=== PATIENT | female | born 2000 | race Caucasian/White ===

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

== ENCOUNTER 2020-03-12 03:05 | Emergency (ER) | payer OTHER ==
[~2020-03-12] VITALS: Ht 157.5 cm; Wt 73.0 kg
--- NOTE | 2020-03-12 03:08 | NUR ---
PT DIANNA MIXONS. TAKEN TO BED 4
[2020-03-12 03:10] VITALS: BP 122/84
--- NOTE | 2020-03-12 03:10 | NUR ---
Dr. Dela Cruz examining patient.
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
[2020-03-12] MEDS ORDERED: NACL 0.9% 1,000 ML IV SCH (03:16)
[2020-03-12] MEDS ORDERED: ONDANSETRON 4 MG/2 ML VIAL IVP ONE (03:20)
[2020-03-12] MEDS ORDERED: MORPHINE SULFATE 4 MG/ML SYR IVP ONE (03:20)
[2020-03-12 03:29] LABS: APPEARANCE,URINE CLOUDY (CLEAR); BILIRUBIN,URINE NEGATIVE (NEGATIVE); BLOOD, URINE NEGATIVE (NEGATIVE); COLOR,URINE YELLOW (YELLOW); LEUKOCYTE ESTERASE ,URINE NEGATIVE (NEGATIVE); NITRITE, URINE NEGATIVE (NEGATIVE); PH,URINE 6.5 (5.0-9.0); UGLUCOSE NEGATIVE (NEGATIVE)
[2020-03-12 03:41] LABS: BASOPHILS # (AUTO) 0.1 K/uL (0.00-0.22); BASOPHILS % (AUTO) 0.6 % (0.0-2.0); EOSINOPHILS # (AUTO) 0.1 K/uL (0-0.4); HEMATOCRIT 40.8 % (36-48); HEMOGLOBIN 13.3 g/dL (12.0-16.0); LYMPHOCYTES # (AUTO) 2.1 K/uL (2.5-16.5); LYMPHOCYTES % (AUTO) 22.7 % (20.5-51.1); MEAN CORPUSCULAR HEMOGLOBIN 28 pg (27-31); MEAN CORPUSCULAR HGB CONC 33 g/dL (33-37); MEAN CORPUSCULAR VOLUME 86.4 fL (80-94); MONOCYTES # (AUTO) 0.6 K/uL (0.8-1.0); MONOCYTES % (AUTO) 6.9 % (1.7-9.3); NEUTROPHILS # (AUTO) 6.3 K/uL (1.8-7.7); NEUTROPHILS % (AUTO) 68.8 % (42.2-75.2); PLATELET COUNT (AUTO) 177 K/uL (140-450); RED BLOOD CELL COUNT(AUTO) 4.73 MIL/uL (4.20-5.40); RED CELL DISTRIBUTION WIDTH 13.2 % (11.6-13.7); WHITE BLOOD COUNT (AUTO) 9.1 K/uL (4.5-11.0)
[2020-03-12 03:44] LABS: ALBUMIN 3.6 g/dL (3.4-5.0); ANION GAP 11.5 (8-16); CARBON DIOXIDE 29.4 mmol/L (21-32); CREATININE 0.8 mg/dL (0.6-1.3); POTASSIUM 3.9 mmol/L (3.5-5.1); TOTAL BILIRUBIN 0.4 mg/dL (0.0-1.0)
--- NOTE | 2020-03-12 04:24 | NUR ---
PT TAKEN TO CT
--- NOTE | 2020-03-12 04:33 | NUR ---
PT RETURN FROM CT
--- NOTE | 2020-03-12 04:53 | NUR ---
PT RESTING QUIETLY IN PAIN. VERBALIZES 0/10 PAIN. SIDE RAIL X1, BED IN LOW POSITION WILL CONTINUE TO MONITOR.
[2020-03-12 05:17] VITALS: BP 122/84
--- NOTE | 2020-03-12 05:17 | NUR ---
Patient discharged with v/s stable. Written and verbal after care instructions given and explained. Patient verbalized understanding. Ambulatory with steady gait. All questions addressed prior to discharge. Advised to follow up with PMD.
--- NOTE | 2020-03-14 07:43 | NUR ---
LATE ENTRY- NS 0.9% DISCONTINUED AT 0517.
== END 2020-03-12 05:17 | disposition home or self-care (01) ==
LOC: MED 03:05
DX: R10.31 Right lower quadrant pain (principal)
CPT/HCPCS: 36415; 74177; 80053; 81003; 81025; 82150; 83690; 85025; 96374; 96375; 99285; J2270; J2405; J7030; Q9967

== ENCOUNTER 2020-03-13 10:06 | Emergency (ER) | payer OTHER ==
[~2020-03-13] VITALS: Ht 157.5 cm; Wt 81.6 kg
--- NOTE | 2020-03-13 10:09 | NUR ---
Pt biba and taken to bed 04
[2020-03-13 10:10] VITALS: BP 122/71
--- NOTE | 2020-03-13 10:10 | NUR ---
C/O ABD PAIN X2 DAYS + NAUSEA, DENIES VOMITING/DIARRHEA. PT HAS IUD IN PLACE, LMP: 03/2019. LAST BM: YESTERDAY , PT AOX 4 , AFIBRILE , AMBULATORY WITH STEADY GAIT SEEN AT THE ER YESTERDAY WITH SAME COMPLAINT, FLAT SOFT NABS ABDOMEN . NO PMH NKA DENIES COUGH, SOB, CP.
--- NOTE | 2020-03-13 10:26 | NUR ---
DR SINGH AT BEDSIDE EVALUATING PT.
[2020-03-13] MEDS ORDERED: MORPHINE SULFATE 4 MG/ML SYR IVP ONE ×2 (10:40→12:05)
[2020-03-13] MEDS ORDERED: ONDANSETRON 4 MG/2 ML VIAL IVP ONE (10:40)
[2020-03-13] MEDS ORDERED: NACL 0.9% 1,000 ML IV ONE (10:40)
[2020-03-13 11:02] LABS: APPEARANCE,URINE CLEAR (CLEAR); BILIRUBIN,URINE NEGATIVE (NEGATIVE); BLOOD, URINE NEGATIVE (NEGATIVE); COLOR,URINE YELLOW (YELLOW); LEUKOCYTE ESTERASE ,URINE NEGATIVE (NEGATIVE); NITRITE, URINE NEGATIVE (NEGATIVE); UGLUCOSE NEGATIVE (NEGATIVE)
[2020-03-13 11:05] LABS: BASOPHILS % (AUTO) 0.8 % (0.0-2.0); EOSINOPHILS # (AUTO) 0.1 K/uL (0-0.4); EOSINOPHILS % (AUTO) 2.3 % (0.0-4.0); HEMATOCRIT 39.2 % (36-48); HEMOGLOBIN 12.5 g/dL (12.0-16.0); LYMPHOCYTES # (AUTO) 1.5 K/uL (2.5-16.5); LYMPHOCYTES % (AUTO) 32.6 % (20.5-51.1); MEAN CORPUSCULAR HEMOGLOBIN 28 pg (27-31); MEAN CORPUSCULAR HGB CONC 32 g/dL (33-37); MEAN CORPUSCULAR VOLUME 87.5 fL (80-94); MONOCYTES # (AUTO) 0.4 K/uL (0.8-1.0); MONOCYTES % (AUTO) 8.9 % (1.7-9.3); NEUTROPHILS # (AUTO) 2.6 K/uL (1.8-7.7); NEUTROPHILS % (AUTO) 55.4 % (42.2-75.2); PLATELET COUNT (AUTO) 152 K/uL (140-450); RED BLOOD CELL COUNT(AUTO) 4.48 MIL/uL (4.20-5.40); RED CELL DISTRIBUTION WIDTH 13.5 % (11.6-13.7); WHITE BLOOD COUNT (AUTO) 4.7 K/uL (4.5-11.0)
[2020-03-13 11:20] LABS: ALBUMIN 3.3 g/dL (3.4-5.0); ANION GAP 10.9 (8-16); CARBON DIOXIDE 27.3 mmol/L (21-32); CREATININE 0.7 mg/dL (0.6-1.3); POTASSIUM 4.2 mmol/L (3.5-5.1); TOTAL BILIRUBIN 0.5 mg/dL (0.0-1.0)
--- NOTE | 2020-03-13 12:09 | NUR ---
DR SINGH INFORMED ,PT IN PAIN 04/17 .
--- NOTE | 2020-03-13 12:20 | NUR ---
DR SINGH AT BEDSIDE REEVALUATING PT.
[2020-03-13 12:40] VITALS: BP 128/58
--- NOTE | 2020-03-13 12:41 | NUR ---
Patient discharged with v/s stable. Written and verbal after care instructions given and explained regarding abdominal pain nonspecific. Patient alert, oriented and verbalized understanding of instructions. Ambulatory with steady gait. All questions addressed prior to discharge. ID band removed. Patient advised to follow up with PMD. Rx of mag citrate edgar and norco given. Patient educated on indication of medication including possible reaction and side effects. Opportunity to ask questions provided and answered.
== END 2020-03-13 12:41 | disposition home or self-care (01) ==
LOC: MED 10:06
DX: R10.31 Right lower quadrant pain (principal); R11.0 Nausea
CPT/HCPCS: 36415; 76856; 80053; 81003; 81025; 84702; 85025; 93976; 96374; 96375; 96376; 99284; J2270; J2405; J7030

== ENCOUNTER 2020-05-05 09:08 | Emergency (ER) | payer OTHER ==
[~2020-05-05] VITALS: Ht 157.5 cm; Wt 68.0 kg
[2020-05-05 09:15] VITALS: BP 128/60
[2020-05-05] MEDS ORDERED: PROCHLORPERAZINE 10 MG/2 ML VIAL IM ONE (09:35)
[2020-05-05] MEDS ORDERED: KETOROLAC 30 MG/ML VIAL IM ONE (09:35)
[2020-05-05 10:43] LABS: APPEARANCE,URINE HAZY (CLEAR); BILIRUBIN,URINE NEGATIVE (NEGATIVE); BLOOD, URINE 1+ (NEGATIVE); COLOR,URINE YELLOW (YELLOW); LEUKOCYTE ESTERASE ,URINE 1+ (NEGATIVE); NITRITE, URINE NEGATIVE (NEGATIVE); UGLUCOSE NEGATIVE (NEGATIVE)
[2020-05-05 10:44] VITALS: BP 122/62
[2020-05-05 11:05] LABS: RBC,URINE NONE SEEN /HPF (0-5)
== END 2020-05-05 10:45 | disposition home or self-care (01) ==
LOC: MED 09:08
DX: G43.901 Migraine, unspecified, not intractable, with status migrainosus (principal)
CPT/HCPCS: 81001; 81025; 96372; 99284; J0780; J1885

== ENCOUNTER 2020-06-02 21:27 | Emergency (ER) | payer OTHER ==
[~2020-06-02] VITALS: Ht 157.5 cm; Wt 76.2 kg
[2020-06-02 21:32] VITALS: BP 117/76
--- NOTE | 2020-06-02 21:40 | NUR ---
PT AMBULATED TO BED 2 WITH STEADY GAIT
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
[2020-06-02] MEDS ORDERED: ALPRAZolam 0.25 MG TAB PO STA (21:53)
[2020-06-02 22:03] VITALS: BP 117/76
--- NOTE | 2020-06-02 22:03 | NUR ---
PT HAS A RIDE HOME
== END 2020-06-02 22:03 | disposition home or self-care (01) ==
LOC: MED 21:27
DX: G47.00 Insomnia, unspecified (principal); F41.9 Anxiety disorder, unspecified
CPT/HCPCS: 99283

== ENCOUNTER 2021-12-05 03:04 | Emergency (ER) | payer OTHER ==
[~2021-12-05] VITALS: Ht 157.5 cm; Wt 72.6 kg
[2021-12-05 03:05] VITALS: BP 153/82
--- NOTE | 2021-12-05 03:05 | NUR ---
TO BED AMBULATORY
[2021-12-05] MEDS ORDERED: LIDOCAINE MPF 1% 5 ML ONE (03:27)
[2021-12-05] MEDS ORDERED: ACETAMINOPHEN 325 MG TAB PO ONE (04:25)
[2021-12-05] MEDS ORDERED: LIDOCAINE MPF 1% 10 ML ONE (04:27)
[2021-12-05] MEDS ORDERED: LIDOCAINE MPF 1% 10 MG/ML VIAL INJ ONE (04:30)
[2021-12-05] MEDS ORDERED: BACITRACIN OINT 500 UNITS/GM PKT TP ONE (05:20)
--- NOTE | 2021-12-05 05:44 | NUR ---
PT HAS A 10/[address] CHAMBERS MADE AWARE. RECEIVED VERBAL ORDER FOR [id number]
[2021-12-05] MEDS ORDERED: HYDROcodone/APAP 5/325 MG 1 TAB TAB PO ONE (05:45)
[2021-12-05 05:53] VITALS: BP 123/65
--- NOTE | 2021-12-05 05:55 | NUR ---
[address] CHAMBERS. PT TOLERATED PROCEDURE WELL. BACITRACIN APPLIED AND COVERED BY NON ADHERENT DRESSING. PT ACKNOWLEDGE UNDERSTANDING OF SUTURE CARE AND FOLLOW-UP INSTRUCTIONS.
--- NOTE | 2021-12-06 08:09 | NUR ---
LATE ENTRY. DR MOORE PRINTED OFFICAL RESULT OF XR FACIAL BONES. CALLED PT TO INFORM HER OF RESULTS AND TO FOLLOW UP WITH OPHTHALMOLOGY/MAX/FACIAL SPECIALIST.
== END 2021-12-05 05:57 | disposition home or self-care (01) ==
LOC: MED 03:04
DX: S01.111A Laceration without foreign body of right eyelid and periocular area, initial encounter (principal); W22.8XXA Striking against or struck by other objects, initial encounter; Y93.89 Activity, other specified; Y92.89 Other specified places as the place of occurrence of the external cause; Y99.8 Other external cause status
CPT/HCPCS: 12013; 70150; 90471; 90715; 99284; J2001

== ENCOUNTER 2022-09-07 09:19 | Emergency (ER) | payer OTHER ==
[~2022-09-07] VITALS: Ht 157.5 cm; Wt 79.1 kg
[2022-09-07 09:23] VITALS: BP 122/65
[2022-09-07] MEDS ORDERED: ACETAMINOPHEN EXTRA STRENGTH 500 MG TAB PO ONE (09:30)
--- NOTE | 2022-09-07 09:30 | NUR ---
COVID, FLU SWABD DONE.
[2022-09-07] MEDS ORDERED: IBUPROFEN 600 MG TAB PO ONE (09:35)
[2022-09-07] MEDS ORDERED: ROB PO (11:44)
[2022-09-07] MEDS ORDERED: ALBU0.0912 IH (11:44)
[2022-09-07] MEDS ORDERED: KETOROLAC 30 MG/ML VIAL IM ONE (11:45)
[2022-09-07] MEDS ORDERED: NAPR-54 PO (12:01)
== END 2022-09-07 12:10 | disposition home or self-care (01) ==
LOC: MED 09:19
DX: B34.9 Viral infection, unspecified (principal); Z20.822 Contact with and (suspected) exposure to COVID-19
CPT/HCPCS: 87426; 87804; 96372; 99283; J1885

== ENCOUNTER 2022-12-26 23:05 | Emergency (ER) | payer OTHER ==
[~2022-12-26] VITALS: Ht 157.5 cm; Wt 83.5 kg
[~2022-12-26 23:05] MED LIST: ALBU0.0912 IH; NAPR-54 PO; ROB PO
[2022-12-26 23:49] VITALS: BP 140/72
[2022-12-27] MEDS ORDERED: IBUP-2218 PO (01:15)
[2022-12-27] MEDS ORDERED: ACET-10509 PO (01:15)
[2022-12-27] MEDS ORDERED: ONDA-188 SL (01:15)
--- NOTE | 2022-12-27 01:25 | NUR ---
Patient discharged with v/s stable. Written and verbal after care instructions given and explained. Patient alert, oriented and verbalized understanding of instructions. Ambulatory with steady gait. All questions addressed prior to discharge. ID band removed. Patient advised to follow up with PMD. Rx of MOTRIN, TYLENOL, AND ZOFRAN given. Patient educated on indication of medication including possible reaction and side effects. Opportunity to ask questions provided and answered.
== END 2022-12-27 01:25 | disposition home or self-care (01) ==
LOC: MED 23:05
DX: F07.81 Postconcussional syndrome (principal); R55 Syncope and collapse; Z79.899 Other long term (current) drug therapy; Z79.1 Long term (current) use of non-steroidal anti-inflammatories (NSAID)
CPT/HCPCS: 81025; 93005; 99283

== ENCOUNTER 2023-03-07 20:55 | Emergency (ER) | payer OTHER ==
[~2023-03-07 20:55] MED LIST changes: +ACET-10509 PO; +IBUP-2218 PO; +ONDA-188 SL
--- NOTE | 2023-03-07 21:11 | NUR ---
Attempted to locate pt in [place].
== END 2023-03-07 21:25 | disposition left against medical advice (07) ==
LOC: MED 20:55
DX: R51.9 Headache, unspecified (principal); Z53.21 Procedure and treatment not carried out due to patient leaving prior to being seen by health care provider